=== PATIENT | female | born 1945 ===

== ENCOUNTER 2019-03-13 09:57 | Emergency (ER) | payer OTHER ==
[~2019-03-13] VITALS: Ht 154.9 cm; Wt 59.9 kg
[~2019-03-13 09:57] MED LIST: ALEVE220 M1 PO; CALTRATE 600 W-1 TAB; CEFADROXIL500 MG PO; KETO10TA2 PO; PERCOCET 5/3251 TAB PO; PRAVASTATIN SOD10 MG; VITAMIN B122500 MC1
== END 2019-03-13 16:11 | disposition home or self-care (01) ==
LOC: ER 09:57
DX: R10.32 Left lower quadrant pain (principal); R10.12 Left upper quadrant pain